=== PATIENT | male | born 1975 | race Caucasian/White ===

== ENCOUNTER 2016-12-23 19:39 | Emergency (ER) | payer MEDICAID ==
--- NOTE | ~2016-12-23 | CR58 ---
[facility] A Service of [facility] RADIOLOGY TEXT RESULTS PATIENT: SONDRA ALMEIDA LOCATION: [facility] : 71 UNIT #: [id number] AGE: [address]: Luis Mcnally MD SEX: M ORDER DR: [id number] [facility] [address] [place], [place] [address] [id number] E MR#: [id number] Acc #: [id number] NAME: SONDRA ALMEIDA. : 1975 SEX: M STUDY DATE/TIME: 12/23/2016 21:07 UNIT: [facility] ROOM: STUDY DESCRIPTION: CR Cervical Spine 2 or 3 Views Attending Physician: James Mcnally Ordering Physician: Ed Doc Jessy Michelle Primary Care Physician: Primary Care Physician No MEDICAL IMAGING REPORT This report is preliminary unless electronic signature is present EXAM C-spine series 3 views HISTORY Neck pain onset today, had a fall, seizures. FINDINGS AP, lateral and open-mouth odontoid views of the cervical spine demonstrates no acute fracture or malalignment. Mild degenerative disc changes noted C4-5, C5-6 with predominately anterior hypertrophic change. Posterior elements unremarkable. The odontoid and C1-2 relationship appear normal. The upper thorax is unremarkable. IMPRESSION No acute findings. Dictated by... Charanjit Hernández M.D. THIS IS AN ELECTRONICALLY VERIFIED REPORT Charanjit Hernández M.D. at 12/24/2016 2:47 PM AUDRA/jc TD: 12/23/2016 22:11 JOB #: [id number] MEDICAL IMAGING REPORT Page 1 of 1 COPY
--- NOTE | ~2016-12-23 | CT71 ---
[facility] A Service [facility] RADIOLOGY TEXT RESULTS PATIENT: SONDRA ALMEIDA LOCATION: [facility] : 71 UNIT #: [id number] AGE: [address]: Luis Mcnally MD SEX: M ORDER DR: [id number] [place], [place] [address] [id number] P MR#: [id number] Acc #: [id number] NAME: SONDRA ALMEIDA : 1975 SEX: M STUDY DATE/TIME: 12/23/2016 20:55 UNIT: [facility] ROOM: STUDY DESCRIPTION: CT Head Wo Contrast Attending Physician: James Mcnally Ordering Physician: Osmar Michelle M.D. MEDICAL IMAGING REPORT This report is preliminary unless electronic signature is present EXAM Noncontrast head CT HISTORY Possible seizure, passed out, hit head, headaches. This CT exam was performed with one or more of the following radiation dose reduction techniques: automatic exposure control, adjustment of mA and/or kV according to patient size, and iterative reconstruction. FINDINGS Axial noncontrast imaging of the brain demonstrates the brain parenchyma to be normal. No mass, mass effect or midline shift. No hemorrhage or abnormal extraaxial fluid collections. Bilateral ethmoid sinus mucosal disease. Mastoids unremarkable. IMPRESSION 1. No acute intracranial abnormality identified. 2. Bilateral ethmoid sinus mucosal disease. Dictated by... Charanjit Hernández M.D. THIS IS AN ELECTRONICALLY VERIFIED REPORT Charanjit Hernández M.D. at 12/24/2016 2:47 PM AUDRA/jc TD: 12/23/2016 21:41 JOB #: [id number] [facility] A Service [facility] RADIOLOGY TEXT RESULTS PATIENT: SONDRA ALMEIDA LOCATION: [facility] : 71 UNIT #: [id number] AGE: [address]: Luis Mcnally MD SEX: M ORDER DR: MEDICAL IMAGING REPORT Page 1 of 1 COPY
--- NOTE | ~2016-12-23 | CR181 ---
[facility] A Service of [facility] RADIOLOGY TEXT RESULTS PATIENT: SONDRA ALMEIDA LOCATION: [facility] : 71 UNIT #: [id number] AGE: [address]: Luis Mcnally MD SEX: M ORDER DR: [id number] [facility] [address] [place], [place] [address] [id number] E MR#: [id number] Acc #: [id number] NAME: SONDRA ALMEIDA. : 1975 SEX: M STUDY DATE/TIME: 12/23/2016 21:18 UNIT: [facility] ROOM: STUDY DESCRIPTION: CR Lumbar Spine 2 or 3 Views Attending Physician: Luis Mcnally M.D. Referring Physician: Jorge Luis Siegel M.D. Ordering Physician: Ed Tal Michelle M.D. Primary Care Physician: No Primary Care Physician MEDICAL IMAGING REPORT This report is preliminary unless electronic signature is present EXAM Lumbar spine series, 3 views. HISTORY Fell today, low back pain, possible seizure. FINDINGS Three views of the lumbar spine demonstrates mild multilevel degenerative disc changes with endplate sclerosis anterior hypertrophic change. Mild facet arthropathy lower lumbar spine. No fracture. No spondylolysis or spondylolisthesis. Soft tissues unremarkable. IMPRESSION Mild diffuse to degenerative disc changes and lower lumbar spine facet arthropathy. No acute findings. Dictated by... Charanjit Hernández M.D. THIS IS AN ELECTRONICALLY VERIFIED REPORT Charanjit Hernández M.D. at 12/24/2016 2:47 PM Camilo TD: 12/23/2016 22:18 JOB #: [id number] MEDICAL IMAGING REPORT Page 1 of 1 COPY
[2016-12-23 21:43] LABS: BUN/CREATININE RATIO 21.11; CALCIUM SERUM 8.8 mg/dL (8.4-10.2); CREATININE SERUM 0.9 mg/dL (0.6-1.4); GLOM FILT RATE Estimated 104.2 mL/min (>60); POTASSIUM 3.6 mmol/L (3.5-5.1)
== END 2016-12-23 22:47 | disposition home or self-care (01) ==
LOC: CED 19:39
PROVIDERS: Emergency Medicine
DX: G40.909 Epilepsy, unspecified, not intractable, without status epilepticus (principal); Z88.8 Allergy status to other drugs, medicaments and biological substances
CPT/HCPCS: 36415; 70450; 72040; 72100; 80048; 82947; 96374; 96375; 99284; J1885; J1953